=== PATIENT | male | born 1945 | race Caucasian/White ===

== ENCOUNTER 2019-06-05 10:47 | Emergency (ER) | payer MEDICARE ==
[~2019-06-05] VITALS: Ht 177.8 cm; Wt 83.0 kg
[2019-06-05 12:33] LABS: Source, Urine Clean Catch
[2019-06-05] MEDS ORDERED: GLIP5 PO (12:33)
[2019-06-05 12:45] LABS: Bilirubin, Urine Neg (Neg); Blood, Urine 5+ (Neg); Glucose Qualitative, Urine 4+ (Neg); Ketones, Urine 1+ (Neg); Leukocyte Esterase, Urine 3+ (Neg); Nitrite, Urine Neg (Neg); Protein, Urine 3+ (Neg); Urobilinogen, Urine 1+ (Normal)
[2019-06-05 12:54] LABS: Appearance, Urine Hazy (Clear); Bacteria Mod /hpf; Color, Urine Yellow (P-Yellow); Squamous Epithelial Cells Few /hpf (Few); White Blood Cells, Urine 25-50 /hpf (0-5)
[2019-06-05] MEDS ORDERED: Bactrim Ds Tab1 EACH PO (13:18)
== END 2019-06-05 14:00 | disposition home or self-care (01) ==
LOC: ER 10:47
PROVIDERS: Emergency Medicine
DX: N41.9 Inflammatory disease of prostate, unspecified (principal); N39.0 Urinary tract infection, site not specified; E11.9 Type 2 diabetes mellitus without complications; Z88.0 Allergy status to penicillin; Z79.899 Other long term (current) drug therapy
CPT/HCPCS: 51798; 81001; 87077; 87086; 87186; 99283; A9270-GY